=== PATIENT | female | born 1990 | race Caucasian/White ===

== ENCOUNTER 2018-06-26 18:31 | Emergency (ER) | payer OTHER ==
[~2018-06-26] VITALS: Ht 154.9 cm; Wt 52.2 kg
[2018-06-26 18:46] LABS: URINE BILIRUBIN 2+ (Negative); URINE BLOOD TRACE (Negative); URINE CLARITY CLEAR; URINE COLOR YELLOW; URINE GLUCOSE-RANDOM* NEGATIVE (Negative); URINE KETONES 3+ (Negative); URINE LEUKOCYTES-REFLEX TRACE (Negative); URINE PROTEIN (DIPSTICK) 2+ (Negative); URINE SPECIFIC GRAVITY >= 1.030 (1.005-1.035)
[2018-06-26 18:52] LABS: URINE NITRITE-REFLEX POSITIVE (Negative)
[2018-06-26 18:56] LABS: ICTOTEST (BILI CONFIRMATORY) Positive (Negative)
[2018-06-26 18:57] LABS: URINE REDUCING SUBSTANCE NEGATIVE
[2018-06-26 18:59] LABS: BACTERIA-REFLEX 1-9 Few /HPF (None Seen); CASTS None Seen /LPF (None Seen); CRYSTALS None Seen /LPF (None Seen); SQUAMOUS 4-10 Moderate /LPF (0-3); URINE RBC 0-2 Rare /HPF (0-2); URINE WBC-REFLEX 0-5 Rare /HPF (0-5); WBC CLUMPS Few (None Seen)
[2018-06-26 19:04] LABS: ABSOLUTE NEUTROPHILS 10.9 thou/uL (1.4-8.2); BASOPHILS 0.4 % (0.0-2.0); EOSINOPHILS 0.1 % (0.0-3.0); HEMATOCRIT 42.6 % (37.0-47.0); HEMOGLOBIN 14.7 gm/dL (12.0-15.0); LYMPHOCYTES 10.9 % (24.0-44.0); MCH 35.1 pg (26.0-34.0); MCHC 34.4 g/dL (28.0-37.0); MCV 102.1 fL (80.0-100.0); MONOCYTES 5.9 % (1.0-8.0); PLATELET COUNT 192 thou/uL (150-400); POLYS 82.7 % (36.0-66.0); RBC 4.18 mil/uL (4.20-5.00); RDW 12.9 % (10.5-14.5); WBC 13.2 thou/uL (4.0-11.0)
[2018-06-26 19:07] LABS: CALCIUM 9.6 mg/dL (8.5-10.1); CREATININE 0.8 mg/dL (0.6-1.0)
[2018-06-26 19:13] LABS: ALBUMIN 5.1 g/dL (3.4-5.0); TOTAL BILIRUBIN 2.6 mg/dL (<0.1-1.0)
[2018-06-26] MEDS ORDERED: POTASSIUM20 PO (21:52)
[2018-06-26] MEDS ORDERED: BENTYL 20 MG TA20 M1 PO (21:52)
[2018-06-26] MEDS ORDERED: PHENERGAN 25 MG25 M1 PO (21:52)
[2018-06-26 22:09] VITALS: BP 114/79
== END 2018-06-26 22:10 | disposition home or self-care (01) ==
LOC: ER 18:31
PROVIDERS: Physician Assistant
DX: K80.20 Calculus of gallbladder without cholecystitis without obstruction (principal); E87.6 Hypokalemia; D72.829 Elevated white blood cell count, unspecified; E80.6 Other disorders of bilirubin metabolism; R11.2 Nausea with vomiting, unspecified; R94.5 Abnormal results of liver function studies; F17.210 Nicotine dependence, cigarettes, uncomplicated